=== PATIENT | female | born 1950 | race Caucasian/White ===

== ENCOUNTER 2018-02-25 12:26 | Inpatient (IN) ==
[~2018-02-25 12:26] MED LIST: Chlorhexidine Gluconate 2% 1 Pack (2 Cloths) TOPICAL ONE; Metoprolol Tartrate 25 MG Tablet PO ONE; Sodium Chlor 0.9% Inj 500 ML IV.CONT ONE; ceFAZolin 1 GM Premix Inj 1 GM/50 ML FROZ.PIGGY IV.SIG SCH
[2018-02-25] MEDS ORDERED: Sugammadex Inj 200 MG/2 ML Vial IV.PUSH ONE (15:46)
[2018-02-25] MEDS ORDERED: Phenylephrine/NS 1000 MCG/10ML Syringe IV.PUSH ONE (16:03)
[2018-02-25] MEDS ORDERED: Potassium Chlor 40 mEq Premix 40 MEQ/100 ML PIGGYBACK IV.SIG PRN ×2 (18:16→19:10)
[2018-02-25] MEDS ORDERED: Potassium Chlor 20 mEq Premix 20 MEQ/100 ML PIGGYBACK IV.SIG PRN (18:16)
[2018-02-25] MEDS ORDERED: Zolpidem Tartrate 5 MG Tablet PO PRN (18:19)
[2018-02-25] MEDS ORDERED: Naloxone Inj 0.4 MG/ML Vial IV.PUSH PRN (18:31)
[2018-02-25] MEDS ORDERED: Morphine Inj 30 MG/30 ML PCA.VIAL PCA PRN (18:31)
[2018-02-25] MEDS ORDERED: fentaNYL Citrate Inj 100 MCG/2 ML Ampul ONE (18:34)
[2018-02-25] MEDS ORDERED: *morphine SULFATE 4 MG/ML PERIprocedure ONLY ONE ×2 (18:44→19:00)
[2018-02-25] MEDS ORDERED: KCL 20 mEq/D5W/LR Inj 1,000 ML ONE (18:45)
[2018-02-25] MEDS ORDERED: Morphine Inj 30 MG/30 ML PCA.VIAL PCA ONE (18:45)
[2018-02-25 18:59] LABS: Baso % (Auto) 0.3 % (0.0-2.0); Hematocrit 36.9 % (35.0-46.0); Hemoglobin 12.6 gm/dL (11.6-15.3); Lymph % (Auto) 7.1 % (9.0-44.0); Mean Corpuscular HGB Conc 34.1 % (32.0-36.0); Mean Corpuscular Hemoglobin 32.5 pg (27.0-34.0); Mean Corpuscular Volume 95.3 fL (80.0-100.0); Mean Platelet Volume 8.1 fL (7.0-11.0); Mono % (Auto) 6.8 % (0.0-8.0); Neut # (Auto) 12.1 th/mm3 (1.8-7.7); Neut % (Auto) 85.8 % (16.0-70.0); Platelet Count 213 th/mm3 (150-450); Red Blood Count 3.87 mil/mm3 (4.00-5.30); White Blood Count 14.1 th/mm3 (4.0-11.0)
[2018-02-25] MEDS: KCL 20 mEq/D5W/LR Inj 1,000 ML IV.CONT SCH (19:00)
[2018-02-25 19:26] LABS: Carbon Dioxide 25.2 meq/L (21.0-32.0); Potassium 3.5 meq/L (3.5-5.1)
[2018-02-25] MEDS ORDERED: *HYDROmorphone PF Inj 1 MG/ML Ampul PERIprocedural Use ONLY ONE (19:48)
--- NOTE | 2018-02-25 23:27 | MP ---
cc: Александр Bateman MD DATE OF OPERATION: 02/25/2018 PREOPERATIVE DIAGNOSIS: Diverticulitis with a chronic diverticular abscess. POSTOPERATIVE DIAGNOSIS: Diverticulitis with a chronic diverticular abscess. PROCEDURE PERFORMED: 1. Left colectomy with low anterior resection. 2. Mobilization of the splenic flexure. 3. Omental flap. 4. Cholecystectomy. 5. Intraoperative colonoscopy. SURGEON: Александр Bateman MD DOUBLE BASS PLAYER: Yinka Anne MD ESTIMATED BLOOD LOSS: 100 mL OPERATING TIME: 1 hour and 35 minutes. OPERATIVE FINDINGS: This patient was known to me and was originally seen by me probably 6 months ago in the hospital with diverticulitis with a small 2.5 cm abscess. Since that time, she was treated with antibiotics and cleared; however, her CT scans never fully resolved the abscess. The abscess was in the perisigmoid area superior to the bladder. She intermittently had bouts of abdominal pain and was treated with antibiotics. She had no chronic fever or elevated white blood cell count and no chronic pain; however, because of the persistent abscess and intermittent attacks of diverticulitis over the last 6 months surgery was discussed. At surgery exploration of the abdominal cavity revealed that she did have an inflammatory process in the left lower quadrant, just in the upper portion of the true pelvis with a loop of sigmoid colon stuck to the superior portion of the bladder. Upon dissecting that a small abscess was entered with white pus with no odor. That area was eventually debrided and opened. We did send it for culture and sensitivity. Because of the localized nature of the abscess and the ability to resect the area fully a colectomy was done with a colorectal anastomosis without diversion. The rectal anastomosis was in the upper rectum in a safe area. Also, the patient was found to have a palpably normal liver and stomach and the remainder of the colon, intraoperative colonoscopy was done by Dr. Anne and was normal. The small bowel was also palpably normal. The uterus was surgically absent. Of note, the gallbladder was fully calcified and therefore a cholecystectomy was done as well. OPERATIVE TECHNIQUE: The patient was placed on the table in the supine position. After adequate general endotracheal anesthesia, the legs were placed in the perineal lithotomy position. The abdomen and perineum were prepped and draped in usual manner. She had a previous transverse infraumbilical skin incision, and this was used for the procedure. A transverse incision was made through the previous skin incision, carried down through subcutaneous tissue and rectus muscles. Of note, the rectus muscles had been divided before and with simply fibrous tissue with no real rectus muscle present simply an anterior and posterior rectus sheath. The lateral strap muscles were both divided for a short distance as well, allowing full exploration of the abdominal cavity. Exploration of the abdominal cavity revealed really no adhesions, except for the inflammatory sigmoid process in the left lower quadrant and upper pelvis region. First, the descending and upper sigmoid colon was mobilized along its peritoneal reflection. The left ureter was identified and protected at all times as was the right ureter. The splenic flexure was mobilized and the transverse colon was mobilized entering the lesser sac and the omentum was mobilized from the transverse colon for use with an omental flap and at the end of the procedure. This was used to separate the inflammatory process above the bladder and the colorectal anastomosis. Once this was done, the dissection down the left pelvic area was done, identifying the ureter and protecting it at all times. The sigmoid colon was dissected free of the left anterior pelvis and then superiorly off of the bladder and upon doing this, we entered a 2 cm abscess just above the bladder. This area was opened widely and curetted clean of all debris and the white pus that drained from there was cultured. The pelvis and abdomen was then irrigated thoroughly with saline solution at that point in case this was not a sterile abscess. Once this was mobilized, the inferior mesenteric artery was doubly clamped, cut and doubly ligated with 0 Vicryl ligature and the inferior mesenteric vein was clamped, cut and ligated as well. The retrorectal space was entered and the dissection was taken down toward the pelvic floor posteriorly and laterally. The lateral pelvic peritoneum was incised bilaterally. The anterior cul-de-sac was not entered and the rectum was cleared just above the cul-de-sac. The mesorectum was clamped, cut and ligated and the rectum was cleared and was of excellent size allowing the use of a 33 EEA Ethicon stapler. Next, the inferior mesenteric vein was once again divided higher between Kate clamps and ligated allowing us to take the dissection all the way up to the splenic flexure and marginal vessels. Next, the descending colon was cleared of its mesentery and the mesentery was clamped, cut and ligated and the pursestring stapler was placed. We then used the pursestring stapling device on the rectum and the rectum was divided. Next, our attention was turned to the descending colon and the mesocolon was clamped, cut and ligated and the colon was then divided after placing another pursestring stapling device. The anvil of the Ethicon 33 EEA was placed in the proximal bowel and then Dr. Anne went below and placed the 33 EEA transanally and the trocar was opened and the first distal pursestring was tied. The instrument was connected, closed and fired, creating the anastomosis. There was no tension on the anastomosis and the blood supply was excellent. Next, the pelvis was irrigated thoroughly with 2 liters of saline solution, aspirated dry. Dr. Anne ended colonoscopy to the cecum without any evidence of any other lesions. We then leak tested the anastomosis with air in the rectum, using the colonoscope with another liter of saline solution in the pelvis and no air leaks were identified. Once again, there was no tension on the anastomosis and the blood supply was excellent. Once this was done, hemostasis was maintained throughout with electrocautery and ligature and we placed the omentum down the left colic gutter with the omentum placed between the bladder and the anastomosis. The end of the omentum was able to be placed in the cavity above the bladder, where the abscess was previously located. We then turned our attention to the gallbladder and the gallbladder was fully calcified and it was almost on the mesentery and was dissected free of the liver from above downward with ease. The cystic artery was intact and clamped, cut, and ligated just above the right hepatic artery, which was easily visible. Next, the cystic duct was clamped, cut and ligated and the specimen was removed from the table. Hemostasis was maintained throughout with electrocautery. The abdominal cavity was irrigated one more time with another liter of saline solution and aspirated dry. Next, the bowels were placed in the abdominal cavity in an android framework developer manner and then the abdominal cavity was closed in layers using double-stranded #1 PDS for the posterior rectus sheath and that layer was irrigated thoroughly with a liter of saline solution. The anterior rectus sheath was likewise closed with double stranded #1 PDS as well. Subcutaneous tissue was then irrigated with a liter of saline solution. The skin was closed with running 3-0 Vicryl subcuticular suture. Sponge, needle, instrument counts reported as correct. Estimated blood loss was 100 mL The patient tolerated the procedure well and left the operating room in good condition. MD JOSÉ Lynn/nilson/gail , 07:03 PM , 07:16 PM
[2018-02-26] MEDS: ceFAZolin 2 GM Premix Inj 2 GM/50 ML PIGGYBACK IV.SIG SCH ×4 (00:11→17:27)
[2018-02-26] MEDS: KCL 20 mEq/D5W/LR Inj 1,000 ML IV.CONT SCH ×3 (02:26→16:41)
[2018-02-26 05:05] LABS: Hematocrit 34.9 % (35.0-46.0); Hemoglobin 11.5 gm/dL (11.6-15.3); Lymph # (Auto) 0.3 th/mm3 (1.0-4.8); Mean Corpuscular HGB Conc 33.1 % (32.0-36.0); Mean Corpuscular Hemoglobin 31.7 pg (27.0-34.0); Mean Corpuscular Volume 95.8 fL (80.0-100.0); Mean Platelet Volume 8.9 fL (7.0-11.0); Mono # (Auto) 0.8 th/mm3 (0.0-0.9); Mono % (Auto) 5.2 % (0.0-8.0); Neut # (Auto) 13.4 th/mm3 (1.8-7.7); Neut % (Auto) 92.8 % (16.0-70.0); Platelet Count 214 th/mm3 (150-450); Red Blood Count 3.64 mil/mm3 (4.00-5.30); Red Cell Distribution Width 13.6 % (11.6-17.2); White Blood Count 14.5 th/mm3 (4.0-11.0)
[2018-02-26 05:32] LABS: Calcium 7.8 mg/dL (8.5-10.1); Carbon Dioxide 28.9 meq/L (21.0-32.0); Potassium 4.2 meq/L (3.5-5.1)
[2018-02-26] MEDS: Pantoprazole Inj 40 MG Vial IV.PUSH SCH (09:42)
[2018-02-26] MEDS: Dextrose 5%/NaCl 0.9% Inj 1,000 ML IV.SIG SCH ×2 (11:27→11:28)
--- NOTE | 2018-02-26 16:49 | P.PNCS ---
Subjective Colorectal Surgery Post Op Day #: 1 Interval history: Not too much pain. No N or V now. Tolerating CLD. Walked x2, OOB in chair x 2 today so far. Objective Result Diagrams: 02/26/18 04:01 02/26/18 04:01 Objective Remarks: Abd: flat,soft,dressings dry Assessment and Plan - Plan May transfer to [address] [place] [address] D/C [facility] D/C [place] and [employer] and dressing in AM Continue Ancef and Flagyl due to abscess found at surgery. Culture done at surgery not found in EMR.
[2018-02-26] MEDS ORDERED: ceFAZolin Inj 2,000 MG in Sodium Chlor 0.9% Inj 80 ML IV.SIG SCH (18:00)
[2018-02-27] MEDS: KCL 20 mEq/D5W/LR Inj 1,000 ML IV.CONT SCH ×3 (02:29→19:44)
[2018-02-27] MEDS: ceFAZolin 2 GM Premix Inj 2 GM/50 ML PIGGYBACK IV.SIG SCH ×3 (02:30→18:53)
[2018-02-27 07:24] LABS: Baso % (Auto) 0.1 % (0.0-2.0); Eos % (Auto) 0.1 % (0.0-4.0); Hematocrit 31.9 % (35.0-46.0); Lymph # (Auto) 1.4 th/mm3 (1.0-4.8); Lymph % (Auto) 7.9 % (9.0-44.0); Mean Corpuscular HGB Conc 34.4 % (32.0-36.0); Mean Corpuscular Hemoglobin 32.2 pg (27.0-34.0); Mean Corpuscular Volume 93.8 fL (80.0-100.0); Mean Platelet Volume 8.6 fL (7.0-11.0); Mono # (Auto) 1.5 th/mm3 (0.0-0.9); Neut # (Auto) 15.3 th/mm3 (1.8-7.7); Neut % (Auto) 83.9 % (16.0-70.0); Platelet Count 205 th/mm3 (150-450); Red Cell Distribution Width 14.1 % (11.6-17.2); White Blood Count 18.2 th/mm3 (4.0-11.0)
[2018-02-27 07:58] LABS: Calcium 8.6 mg/dL (8.5-10.1); Carbon Dioxide 29.2 meq/L (21.0-32.0); Potassium 3.8 meq/L (3.5-5.1)
[2018-02-27] MEDS: Pantoprazole Inj 40 MG Vial IV.PUSH SCH (09:41)
[2018-02-28] MEDS: ceFAZolin 2 GM Premix Inj 2 GM/50 ML PIGGYBACK IV.SIG SCH (02:10)
[2018-02-28] MEDS: KCL 20 mEq/D5W/LR Inj 1,000 ML IV.CONT SCH (05:44)
[2018-02-28] MEDS: Pantoprazole Inj 40 MG Vial IV.PUSH SCH (08:48)
[2018-02-28 09:32] VITALS: BP 158/79; PULSE 90; RESP 18; TEMP 98.7; O2SAT 92
== END 2018-02-28 10:26 | disposition home or self-care (01) ==
LOC: HSDI 12:26 → HCPC 20:24 → N07 02-26 19:09
PROVIDERS: ADMIT Colon & Rectal Surgery; ATTEND Colon & Rectal Surgery
DX: K57.20 Diverticulitis of large intestine with perforation and abscess without bleeding